=== PATIENT | male | born 1970 | race Caucasian/White ===

== ENCOUNTER 2016-10-20 18:33 | Emergency (ER) | payer OTHER ==
[~2016-10-20] VITALS: Ht 180.3 cm; Wt 97.5 kg
[2016-10-20 18:51] VITALS: BP 162/91
--- NOTE | 2016-10-20 19:59 | ED ANKLE/FOOT INJURY COMPLAINT ---
History of Present Illness General Chief Complaint: Foot or Ankle Injury Stated Complaint: R FOOT INJURY Source: patient Exam Limitations: no limitations Vital Signs & Intake/Output Vital Signs & Intake/Output Vital Signs Date Time Temp Pulse Resp B/P B/P Pulse O2 O2 Flow FiO2 Mean Ox Delivery Rate 10/20 1851 97.4 72 18 162/91 98 Room Air Allergies Coded Allergies: No Known Allergies (10/20/16) Reconcile Medications Cholecalciferol (Vitamin D3) (Vitamin D) 1,000 UNIT TABLET 1 TAB PO DAILY SUPPLEMENT (Reported) Cyanocobalamin (Vitamin B-12) 1,000 MCG TABLET 1 TAB PO DAILY SUPPLEMENT ( Reported) Doxycycline Hyclate 100 MG TABLET 1 TAB PO BID abscess Meloxicam 15 MG TABLET 1 TAB PO PRN PAIN/INFLAMMATION (Reported) Triage Note: PT STATES THAT HE HAS A LUMP TO ARCH OF HIS R FOOT, PT STATES NO PAIN WHEN SITTING BUT SOON HE TRIES TO STEP ON IT PAIN IS 7/10, PT NOTED WHITE SMALL ROUND AREA TO INNER ARCH. Triage Nurses Notes Reviewed? yes Duration: day(s):, constant, continues in ED Timing: recent history Severity: moderate, severe Pain/Injury Location: Right: Foot. No Modifying Factors: none HPI: 45-year-old male comes into emergency room with pain to the base of right foot. Symptoms are going on for days. Denies any fever chills. Last tetanus shot unknown known. Patient denies any trauma that he is aware of. Denies any foreign bodies or puncture wounds from stepping on anything that he is aware of. (ELMO THOMPSON) Past History Travel History Traveled to [place] past 21 day No Medical History Any Pertinent Medical History? 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 No (ELMO THOMPSON) Review of Systems Review of Systems Constitutional: Reports: no symptoms. EENTM: Reports: no symptoms. Respiratory: Reports: no symptoms. Cardiovascular: Reports: no symptoms. GI: Reports: no symptoms. Genitourinary: Reports: no symptoms. Musculoskeletal: Reports: no symptoms. Skin: Reports: see HPI. Neurological/Psychological: Reports: no symptoms. Hematologic/Endocrine: Reports: no symptoms. Immunologic/Allergic: Reports: no symptoms. All Other Systems: Reviewed and Negative (ELMO THOMPSON) Physical Exam Physical Exam General Appearance: well developed/nourished Head: atraumatic Eyes: Bilateral: normal appearance. Ears, Nose, Throat: normal ENT inspection, hearing grossly normal Neck: normal inspection Cardiovascular/Respiratory: no respiratory distress Back: normal inspection Leg/Knee/Thigh Left: normal inspection Leg/Knee/Thigh Right: normal inspection Psychiatric: awake, alert, oriented x 3 Skin: intact, normal color, warm/dry Diagram Feet Bottom: 1) Small white pustule, warmth, swelling, tenderness with palpation (ELMO THOMPSON) Progress Differential Diagnosis: arterial insufficiency, cellulitis, septic arthritis, gout, fracture, dislocation, sprain, contusion, compartmental syndrome, abscess Plan of Care: Orders Procedure Date/time Status EXTREMETIES CULTURE 10/21 2027 Active Durable Medical Equipment 10/20 2001 Active Microbiology 10/21 2019 EXTREMITIE: Culture & Sensitivity - RECD 10/21 2019 EXTREMITIE: Gram Stain - RECD Departure Departure Disposition: HOME OR SELF CARE Condition: Stable Clinical Impression Primary Impression: Abscess of right foot Referrals: SOFIYA SMITH,STANFORD Kraft (PCP/Family) Additional Instructions: Warm soaks. Take doxycycline as prescribed. 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 Return if any concerns worsening symptoms. Please go over all results of today's visit with your primary care doctor. Contact your primary care doctor to let them know you were here in the emergency room. There may be nonspecific findings which may not be related to your visit today here in the emergency room but may require further evaluation and chronic monitoring by your primary care doctor. If you had a laceration today the chance of foreign body always remains. You should follow-up with your primary care doctor for recheck in 3-5 days for a wound check. If you had an x-ray done there is a chance that a fracture could have been missed on initial read and you should follow-up with your primary care doctor for repeat x-rays if symptoms persist. If your blood pressure was elevated here in the emergency room please have rechecked by her primary care doctor within the next 48 hours by your primary care doctor. If you were prescribed a narcotic here in the emergency room or any type of controlled substances you're not allowed to drive while taking this medication or operate any type of heavy machinery. Narcotics can make you feel lightheaded dizziness nausea and can cause constipation. You may need to cook pickled meat a stool softener. Thank you for choosing [facility] emergency room. Please return to the emergency room immediately if you have any other concerns worsening of symptoms. Departure Forms: Customer Survey General Discharge Information Prescriptions: Current Visit Scripts Doxycycline Hyclate 1 TAB PO BID #20 TAB (ELMO THOMPSON) PA/EMPLOYEE RELATIONS ASSISTANT Co-Sign Statement Statement: ED Attending supervision documentation- I saw and evaluated the patient. I have also reviewed all the pertinent lab results and diagnostic results. I agree with the findings and the plan of care as documented in the PA's/EMPLOYEE RELATIONS ASSISTANT's documentation. x I have reviewed the ED Record and agree with the PA's/EMPLOYEE RELATIONS ASSISTANT's documentation. [] Additions or exceptions (if any) to the PAs/EMPLOYEE RELATIONS ASSISTANT's note and plan are summarized below: [] (HUNTER SMITH,RENETTA) Procedures Incision and Drainage Site: right foot Blade Size: 11 I & D Procedure: Yes: betadine prep, sterile drapes applied, sterile dressing applied. Progress: 1% lidocaine without epi, Splinting Location: right foot Manual Alignment Performed: No Pre-Made Type: pneumatic boot Splint Applied By: splint applied by me Pre-Proc Neuro Vasc Exam: normal Post-Proc Neuro Vasc Exam: normal (ELMO THOMPSON)
[2016-10-20] MEDS ORDERED: DOXYCYCLINE HY100 M4 PO (20:01)
[2016-10-20] MEDS ORDERED: VITAMIN D1000 UNIT PO (20:04)
[2016-10-20] MEDS ORDERED: MELOXICAM15 M1 PO (20:04)
[2016-10-20] MEDS ORDERED: VITAMIN B-121000 MC3 PO (20:04)
== END 2016-10-20 20:23 ==
LOC: ERH 18:33
DX: L02.611 Cutaneous abscess of right foot (principal)
CPT/HCPCS: 87070; 90471; 90714